=== PATIENT | female | born 1990 | race African-American/Black ===

== ENCOUNTER 2019-03-19 18:22 | Emergency (ER) | payer MEDICAID ==
[~2019-03-19] VITALS: Ht 170.2 cm; Wt 75.0 kg
[2019-03-20 00:34] LABS: CHLORIDE 104 mEq/L (98-107)
[2019-03-20 00:40] LABS: BASOPHILS % 0.5 % (0.0-2.0); EOSINOPHILS % 1.5 % (0.0-5.0); HEMATOCRIT. 33.8 % (36.0-48.0); HEMOGLOBIN. 11.3 g/dL (12.0-16.0); LYMPHOCYTES % 21.9 % (20.0-50.0); MEAN CORPUSCULAR HEMOGLOBIN 27.5 pg (28.0-32.0); MEAN CORPUSCULAR VOLUME 82.6 fL (81.0-99.0); MEAN PLATELET VOLUME 9.8 fl (7.4-10.4); NEUTROPHILS % 70.1 % (40.0-76.0); PLATELET 252 x1000/uL (130-400); RED CELL DISTRIBUTION WIDTH 15.6 % (11.6-14.6)
[2019-03-20 00:58] LABS: B-HCG QUANTITATIVE 43900 mIU/mL (<3)
[2019-03-20 02:00] VITALS: BP 100/56
== END 2019-03-20 02:14 | disposition home or self-care (01) ==
LOC: ER 18:33
DX: O26.891 Other specified pregnancy related conditions, first trimester (principal); O20.0 Threatened abortion; J45.909 Unspecified asthma, uncomplicated; Z3A.12 12 weeks gestation of pregnancy
CPT/HCPCS: 36415; 76801; 80053; 81025; 84702; 85025; 86850; 86900; 99283

== ENCOUNTER 2021-08-31 01:11 | Emergency (ER) | payer MEDICAID ==
[~2021-08-31] VITALS: Ht 165.1 cm; Wt 82.0 kg
[2021-08-31 01:21] VITALS: BP 139/66
== END 2021-08-31 04:12 | disposition left against medical advice (07) ==
LOC: ER 01:11
DX: Z53.21 Procedure and treatment not carried out due to patient leaving prior to being seen by health care provider (principal)